=== PATIENT | male | born 1965 | race Caucasian/White ===

== ENCOUNTER 2016-12-21 15:03 | Emergency (ER) | payer OTHER ==
[~2016-12-21] VITALS: Ht 172.7 cm; Wt 102.5 kg
[~2016-12-21 15:03] MED LIST: ATAC8TAB; PERC10TA27 PO; PROM25SU8 PO; ROSU5 PO
[2016-12-21 15:24] VITALS: BP 88/44; PULSE 84; RESP 17; TEMP 97.5; O2SAT 99
[2016-12-21] MEDS ORDERED: ATAC8TAB PO (15:49)
[2016-12-21] MEDS ORDERED: ROSU5 PO (15:49)
[2016-12-21] MEDS ORDERED: SODIUM CHLOR 0.9% 1000 ML INJ 1,000 ML IV ONE ×2 (15:59→16:15)
[2016-12-21] MEDS ORDERED: SODIUM CHLORIDE 0.9% FLUSH 10 ML FLUSH IVF PRN (16:00)
[2016-12-21 16:08] VITALS: RESP 16; O2SAT 100
[2016-12-21 16:09] VITALS: BP 134/59; PULSE 95; RESP 16; O2SAT 100
[2016-12-21 16:26] LABS: AUTOMATED NEUTROPHIL # 2.6 TH/MM3 (1.8-7.7); BASOPHIL % 0.3 % (0.0-2.0); EOSINOPHIL % 0.8 % (0.0-4.0); HEMATOCRIT 37.9 % (39.0-51.0); HEMO FLAGS DIFF FINAL; LYMPH % 27.7 % (9.0-44.0); LYMPHOCYTE # 1.1 TH/MM3 (1.0-4.8); MEAN CELL VOLUME 85.2 FL (80.0-100.0); MEAN CORPUSCULAR HEMOGLOBIN 28.5 PG (27.0-34.0); MEAN CORPUSCULAR HGB CONC 33.4 % (32.0-36.0); MONO % 9.3 % (0.0-8.0); NEUT % 61.9 % (16.0-70.0); PLATELET COUNT 175 TH/MM3 (150-450); RED BLOOD COUNT 4.45 MIL/MM3 (4.50-5.90); RED CELL DISTRIBUTION WIDTH 12.7 % (11.6-17.2); WHITE BLOOD COUNT 4.1 TH/MM3 (4.0-11.0)
--- NOTE | 2016-12-21 16:29 | PD ---
HPI Chief Complaint: General Weakness Time Seen by Provider: 15:46 Travel History International Travel<30 days: No Contact w/Intl Traveler<30days: No Traveled to known affect area: No History of Present Illness HPI The patient's 51. He has had intermittent fever chills and URI symptoms for several days. He states he did not take any [id number] medication for the URI type illness. He flew 2 hours today from [place] and then went to [facility]. he did not drink alcohol however upon standing up he lost consciousness and fell to the ground. In the ER he states he's dehydrated and needs IV fluids. Similar episode has occurred in the past. He was hypotensive on scene. He had no chest pain nausea or vomiting prior to loss of consciousness or in the ER. [facility], LATER [facility] Past Medical History High Cholesterol: Yes Diabetes: No Diminished Hearing: No Genitourinary: Yes (KIDNEY STONES) Hypertension: Yes Kidney Stones: Yes Tetanus Vaccination: Unknown ?: Not Past Surgical History Abdominal Surgery: Yes (umbilical hernia repair) Appendectomy: Yes Social History Alcohol Use: No Tobacco Use: No Substance Use: No Allergies-Medications (Allergen,Severity, Reaction): Coded Allergies: Morphine (Verified Adverse Reaction, Intermediate, ITCHING, PAIN AND REDNESS , 12/21/16) Reported Meds & Prescriptions Reported Meds & Active Scripts Active Reported Crestor (Rosuvastatin Calcium) 5 Mg Tab 5 Mg PO DAILY Atacand (Candesartan Cilexetil) 8 Mg Tab 8 Mg PO DAILY Review of Systems Except as stated in HPI: all other systems reviewed are Neg Physical Exam Narrative GENERAL: 51-year-old male pleasant well-nourished well-developed SKIN: Warm and dry. HEAD: Atraumatic. Normocephalic. EYES: Pupils equal and round. No scleral icterus. No injection or drainage. ENT: No nasal bleeding or discharge. Mucous membranes pink and moist. NECK: Trachea midline. No JVD. CARDIOVASCULAR: Regular rate and rhythm. RESPIRATORY: No accessory muscle use. Clear to auscultation. Breath sounds equal bilaterally. GASTROINTESTINAL: Abdomen soft, non-tender, nondistended. Hepatic and splenic margins not palpable. MUSCULOSKELETAL: Extremities without clubbing, cyanosis, or edema. No obvious deformities. NEUROLOGICAL: Awake and alert. No obvious cranial nerve deficits. Motor grossly within normal limits. Five out of 5 muscle strength in the arms and legs. Normal speech. PSYCHIATRIC: Appropriate mood and affect; insight and judgment normal. Data Data Last Documented VS Vital Signs Date Time Temp Pulse Resp B/P Pulse Ox O2 Delivery O2 Flow Rate FiO2 12/21/16 16:53 99 16 162/85 99 Room Air 12/21/16 15:24 97.5 VS reviewed Orders Basic Metabolic Panel (Bmp) (12/21/16 15:59) Complete Blood Count With Diff (12/21/16 15:59) Magnesium (Mg) (12/21/16 15:59) Ckmb (Isoenzyme) Profile (12/21/16 15:59) Troponin I (12/21/16 15:59) Ecg Monitoring (12/21/16 15:59) Iv Access Insert/Monitor (12/21/16 15:59) Oximetry (12/21/16 15:59) Sodium Chloride 0.9% Flush (Ns Flush) (12/21/16 16:00) Sodium Chlor 0.9% 1000 Ml Inj (Ns 1000 M (12/21/16 15:59) Electrocardiogram (12/21/16 ) Sodium Chlor 0.9% 1000 Ml Inj (Ns 1000 M (12/21/16 16:15) CKMB (12/21/16 16:10) CKMB% (12/21/16 16:10) Labs Laboratory Tests Test 12/21/16 16:10 White Blood Count 4.1 TH/MM3 Red Blood Count 4.45 MIL/MM3 Hemoglobin 12.7 GM/DL Hematocrit 37.9 % Mean Corpuscular Volume 85.2 FL Mean Corpuscular Hemoglobin 28.5 PG Mean Corpuscular Hemoglobin 33.4 % Concent Red Cell Distribution Width 12.7 % Platelet Count 175 TH/MM3 Mean Platelet Volume 7.4 FL Neutrophils (%) (Auto) 61.9 % Lymphocytes (%) (Auto) 27.7 % Monocytes (%) (Auto) 9.3 % Eosinophils (%) (Auto) 0.8 % Basophils (%) (Auto) 0.3 % Neutrophils # (Auto) 2.6 TH/MM3 Lymphocytes # (Auto) 1.1 TH/MM3 Monocytes # (Auto) 0.4 TH/MM3 Eosinophils # (Auto) 0.0 TH/MM3 Basophils # (Auto) 0.0 TH/MM3 CBC Comment DIFF FINAL Differential Comment Sodium Level 138 MEQ/L Potassium Level 3.6 MEQ/L Chloride Level 100 MEQ/L Carbon Dioxide Level 28.2 MEQ/L Anion Gap 10 MEQ/L Blood Urea Nitrogen 15 MG/DL Creatinine 1.40 MG/DL Estimat Glomerular Filtration 53 ML/MIN Rate Random Glucose 179 MG/DL Calcium Level 8.8 MG/DL Magnesium Level 1.9 MG/DL Total Creatine Kinase 123 U/L Creatine Kinase MB 0.8 NG/ML Troponin I LESS THAN 0.02 NG/ML MDM Medical Decision Making Medical Screen Exam Complete: Yes Emergency Medical Condition: Yes Medical Record Reviewed: Yes Differential Diagnosis Arrhythmia, dehydration, vasovagal episode, PE, anemia, electrolyte imbalance Narrative Course CBC & BMP Diagram 12/21/16 16:10 Troponin less than 0.02 EKG reveals a sinus rhythm with T-wave inversions in the lateral precordial leads as well as inferior leads Renal function is slightly worse than several years ago. We had a fairly extensive discussion about the concern for the patient's presentation. EKG could reflect an ischemic injury pattern. 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 We spoke in detail about some fairly graphic potential outcomes should he be suffering from occlusive coronary disease including cardiopulmonary arrest intubation disability. Patient has assured me that he will follow-up with his primary care provider as soon as possible ideally tomorrow to arrange for an outpatient stress test. It would be preferable for the patient to stay however whether he signs out AGAINST MEDICAL ADVICE or leaves with the diagnosis in this case is considered trivial as the patient comprehends and understands what was discussed regardless. He was seen for essentially the exact same complaint just over 10 as prior and even arrived to the ER hypotensive as he did today. He understands he is most welcome to return any time with even the most mild symptom and has been encouraged to do so. He understands that the conversation would be included in the medical record as well. Diagnosis Primary Impression: Syncope and collapse Additional Impression: ST segment changes on electrocardiogram Referrals: Arvind Bowman MD 1 day Clinical Faculty 2 days Additional Instructions: You have a choice when it comes to health care, and we are glad that you chose [facility]. Hopefully, we have met your expectations on today's visit. You are welcome to return to [facility] at any time, as we are committed to meeting the health care needs of our community. Med/Other Pt SpecificInfo: No Change to Meds Disposition: 01 DISCHARGE HOME Condition: Brett Lynne MD Dec 21, 2016 16:29
[2016-12-21 16:35] LABS: CHLORIDE 100 MEQ/L (98-107); POTASSIUM 3.6 MEQ/L (3.5-5.1); SODIUM (NA) 138 MEQ/L (136-145)
[2016-12-21 16:38] LABS: ANION GAP 10 MEQ/L (5-15); BICARBONATE 28.2 MEQ/L (21.0-32.0); BLOOD UREA NITROGEN 15 MG/DL (7-18); MAGNESIUM 1.9 MG/DL (1.5-2.5)
[2016-12-21 16:41] LABS: GLOMERULAR FILTRATION RATE 53 ML/MIN (>89)
[2016-12-21 16:44] LABS: CREATINE KINASE 123 U/L (39-308)
[2016-12-21 16:53] VITALS: BP 162/85; PULSE 99; RESP 16; O2SAT 99
[2016-12-21 16:57] LABS: CKMB 0.8 NG/ML (0.5-3.6)
--- NOTE | 2016-12-22 23:04 | EKG ---
Date Performed: 12/21/2016 Time Performed: 16:08:18 PTAGE: 51 years EKG: Sinus rhythm Inferior/lateral T wave changes may be due to myocardial ischemia Abnormal ECG PREVIOUS TRACING : 03/10/2006 21.05 Compared to prior tracing no significant change DOCTOR: Vikram Bellamy Interpretating Date/Time 12/22/2016 23:02:23
== END 2016-12-21 17:43 | disposition home or self-care (01) ==
LOC: PHED 15:03
DX: R55 Syncope and collapse (principal); R94.31 Abnormal electrocardiogram [ECG] [EKG]; I95.9 Hypotension, unspecified; Z53.21 Procedure and treatment not carried out due to patient leaving prior to being seen by health care provider
CPT/HCPCS: 80048; 82550; 82552; 83735; 84484; 85025; 93005; 96360; 99284; J7030

== ENCOUNTER 2017-11-01 14:56 | Emergency (ER) | payer OTHER ==
[~2017-11-01] VITALS: Ht 172.7 cm; Wt 103.0 kg
[~2017-11-01 14:56] MED LIST changes: -ATAC8TAB; +ATAC8TAB PO; -PERC10TA27 PO; -PROM25SU8 PO
[2017-11-01 14:58] VITALS: BP 159/79; PULSE 106; RESP 18; TEMP 100.2; O2SAT 99
[2017-11-01] MEDS ORDERED: SODIUM CHLOR 0.9% 1000 ML INJ 1,000 ML IV SCH (15:21)
[2017-11-01 15:26] VITALS: O2SAT 98
[2017-11-01] MEDS ORDERED: SODIUM CHLORIDE 0.9% FLUSH 10 ML FLUSH IV FLUSH PRN (15:30)
[2017-11-01] MEDS ORDERED: PHENAZOPYRIDINE HCL 200 MG TAB PO ONE (15:30)
[2017-11-01] MEDS ORDERED: ACETAMINOPHEN 325 MG TAB PO ONE (15:30)
--- NOTE | 2017-11-01 15:47 | PD ---
HPI Chief Complaint: Complaint Time Seen by Provider: 15:08 Travel History International Travel<30 days: No Contact w/Intl Traveler<30days: No Traveled to known affect area: No History of Present Illness HPI 52-year-old male here for evaluation of dysuria and seasonal allergy-like symptoms. Patient states that since yesterday he has had frequent urination, and when he is finished urinating he feels like he needs to urinate more, however cannot. He endorses feeling subjective fevers and chills as well as generalized malaise. He has some nasal congestion and believes he may have seasonal allergies. No abdominal pain. 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 [facility] Past Medical History High Cholesterol: Yes Diabetes: No Diminished Hearing: No Genitourinary: Yes (KIDNEY STONES) Hypertension: Yes Kidney Stones: Yes Tetanus Vaccination: > 5 Years Influenza Vaccination: No Past Surgical History Abdominal Surgery: Yes (umbilical hernia repair) Appendectomy: Yes Social History Alcohol Use: No Tobacco Use: No Substance Use: No Allergies-Medications (Allergen,Severity, Reaction): Coded Allergies: morphine (Unverified Adverse Reaction, Intermediate, ITCHING, PAIN AND REDNESS , 11/01/17) Reported Meds & Prescriptions Reported Meds & Active Scripts Active Reported Crestor (Rosuvastatin Calcium) 5 Mg Tab 5 Mg PO DAILY Atacand (Candesartan Cilexetil) 8 Mg Tab 8 Mg PO DAILY Review of Systems Except as stated in HPI: all other systems reviewed are Neg Physical Exam Narrative GENERAL: Well-developed, well-nourished, comfortable, no apparent distress. SKIN: Focused skin assessment warm/dry. HEAD: Atraumatic. Normocephalic. EYES: Pupils equal and round. No scleral icterus. No injection or drainage. ENT: No nasal bleeding or discharge. Mucous membranes pink and moist. Normal pharynx. NECK: Trachea midline. No JVD. No nuchal rigidity. CARDIOVASCULAR: Regular rate and rhythm. No murmur appreciated. RESPIRATORY: No accessory muscle use. Clear to auscultation. Breath sounds equal bilaterally. GASTROINTESTINAL: Abdomen soft, non-tender, nondistended. MUSCULOSKELETAL: No obvious deformities. No clubbing. No cyanosis. No edema. No midline vertebral step-off or tenderness. No CVA tenderness. NEUROLOGICAL: Awake and alert. No obvious cranial nerve deficits. Motor grossly within normal limits. Normal speech. PSYCHIATRIC: Appropriate mood and affect; insight and judgment normal. Data Data Last Documented VS Vital Signs Date Time Temp Pulse Resp B/P (MAP) Pulse Ox O2 Delivery O2 Flow Rate FiO2 11/01/17 17:36 100.9 11/01/17 17:02 100 16 96 Room Air Orders Orders Complete Blood Count With Diff (11/01/17 15:) Comprehensive Metabolic Panel (11/01/17 15:) Prothrombin Time / Inr (Pt) (11/01/17:) Act Partial Throm Time (Ptt) (11/01/17:) Urinalysis - C+S If Indicated (11/01/17:) Ct Abd/Pel W Iv Contrast(Rout) (11/01/17 15:21) Iv Access Insert/Monitor (11/01/17 15:21) Ecg Monitoring (11/01/17:) Oximetry (11/01/17 15:) Sodium Chlor 0.9% 1000 Ml Inj (Ns 1000 M (11/01/17 15:21) Sodium Chloride 0.9% Flush (Ns Flush) (11/01/17 15:30) Phenazopyridine (Pyridium) (11/01/17 15:30) Acetaminophen (Tylenol) (11/01/17 15:30) Influenzae A/B Antigen (11/01/17 15:21) Creatine Kinase (Cpk) (11/01/17 16:16) Iohexol 350 Inj (Omnipaque 350 Inj) (11/01/17 16:42) Ketorolac Inj (Toradol Inj) (11/01/17 17:30) Ciprofloxacin (Cipro) (11/01/17 17:45) Labs Laboratory Tests Test 11/01/17 15:30 White Blood Count 11.1 TH/MM3 Red Blood Count 4.51 MIL/MM3 Hemoglobin 12.8 GM/DL Hematocrit 38.5 % Mean Corpuscular Volume 85.4 FL Mean Corpuscular Hemoglobin 28.5 PG Mean Corpuscular Hemoglobin Concent 33.3 % Red Cell Distribution Width 12.3 % Platelet Count 214 TH/MM3 Mean Platelet Volume 7.5 FL Neutrophils (%) (Auto) 76.8 % Lymphocytes (%) (Auto) 12.5 % Monocytes (%) (Auto) 6.6 % Eosinophils (%) (Auto) 1.2 % Basophils (%) (Auto) 2.9 % Neutrophils # (Auto) 8.6 TH/MM3 Lymphocytes # (Auto) 1.4 TH/MM3 Monocytes # (Auto) 0.7 TH/MM3 Eosinophils # (Auto) 0.1 TH/MM3 Basophils # (Auto) 0.3 TH/MM3 CBC Comment AUTO DIFF Differential Comment AUTO DIFF CONFIRMED Prothrombin Time 11.5 SEC Prothromb Time International Ratio 1.1 RATIO Activated Partial Thromboplast Time 27.4 SEC Urine Collection Type CLEAN CATCH Urine Color STRAW Urine Turbidity CLEAR Urine pH 7.0 Urine Specific [place] LESS/EQUAL 1.005 Urine Protein NEG mg/dL Urine Glucose (UA) NEG mg/dL Urine Ketones NEG mg/dL Urine Occult Blood TRACE Urine Nitrite NEG Urine Bilirubin NEG Urine Urobilinogen 0.2 MG/DL Urine Leukocyte Esterase SMALL Urine RBC 4-9 /hpf Urine WBC 3-5 /hpf Urine Squamous Epithelial Cells 0-5 /hpf Urine Amorphous Sediment FEW Microscopic Urinalysis Comment CULT NOT INDICATED Urine Collection Time 1530 Blood Urea Nitrogen 10 MG/DL Creatinine 1.00 MG/DL Random Glucose 102 MG/DL Total Protein 7.7 GM/DL Albumin 4.2 GM/DL Calcium Level 8.7 MG/DL Alkaline Phosphatase 56 U/L Aspartate Amino Transf (AST/SGOT) 17 U/L Alanine Aminotransferase (ALT/SGPT) 45 U/L Total Bilirubin 0.6 MG/DL Sodium Level 140 MEQ/L Potassium Level 3.5 MEQ/L Chloride Level 103 MEQ/L Carbon Dioxide Level 29.6 MEQ/L Anion Gap 7 MEQ/L Estimat Glomerular Filtration Rate 78 ML/MIN Total Creatine Kinase 247 U/L [facility] Medical Decision Making Medical Screen Exam Complete: Yes Emergency Medical Condition: Yes Differential Diagnosis UTI, cystitis, prostatitis, pyelonephritis, nephrolithiasis, colitis, URI, influenza Narrative Course Vital signs reviewed. The patient has fever and slight tachycardia. CBC: WBC 11.1, hemoglobin 12.8, hematocrit 38.5, platelets 214, neutrophils 76.8 %. CMP is unremarkable. Total CK is 247. UA: Small leukocyte esterase, 4-9 RBCs, 3-[address]BC[address] is negative. CT abdomen pelvis: CONCLUSION: 1. Mild prostatic enlargement. No calculi or obstructive uropathy. Small hepatic cyst. Patient has mild prostate tenderness on exam. This along with symptoms of dysuria, the patient likely has prostatitis. Plan is to start him on Cipro. He has a urologist Dr. Barros whom he will follow-up with this week. He was advised to stay hydrated with plenty of fluids and to keep fever under control with Tylenol and ibuprofen. He was informed on when to return to the emergency department. He verbalizes understanding and agreement with plan. Diagnosis Primary Impression: Prostatitis Qualified Codes: N41.9 - Inflammatory disease of prostate, unspecified Referrals: Arsen Cortes MD 3 days Urologist Primary Care Physician 3 days Additional Instructions: Follow-up with your urologist this week. Return to the emergency department for worsening symptoms or any other concerns. Scripts Phenazopyridine (Pyridium) 100 Mg Tab 100 MG PO Q8H Y for DYSURIA for 5 Days, #15 TAB 0 Refills Prov: Zhao Romero MD 11/01/17 Ciprofloxacin (Cipro) 500 Mg Tab 500 MG PO BID for Infection for 14 Days, #28 TAB 0 Refills Prov: Zhao Romero MD 11/01/17 Disposition: 01 DISCHARGE HOME Condition: Stable Zhao Romero MD Nov 01, 2017 15:47
[2017-11-01 15:58] LABS: AUTOMATED NEUTROPHIL # 8.6 TH/MM3 (1.8-7.7); BASOPHIL # 0.3 TH/MM3 (0-0.2); BASOPHIL % 2.9 % (0.0-2.0); EOSINOPHIL # 0.1 TH/MM3 (0-0.4); EOSINOPHIL % 1.2 % (0.0-4.0); HEMATOCRIT 38.5 % (39.0-51.0); HEMOGLOBIN 12.8 GM/DL (13.0-17.0); LYMPH % 12.5 % (9.0-44.0); LYMPHOCYTE # 1.4 TH/MM3 (1.0-4.8); MEAN CELL VOLUME 85.4 FL (80.0-100.0); MEAN CORPUSCULAR HEMOGLOBIN 28.5 PG (27.0-34.0); MEAN CORPUSCULAR HGB CONC 33.3 % (32.0-36.0); MEAN PLATELET VOLUME 7.5 FL (7.0-11.0); MONO % 6.6 % (0.0-8.0); MONOCYTE # 0.7 TH/MM3 (0-0.9); NEUT % 76.8 % (16.0-70.0); PLATELET COUNT 214 TH/MM3 (150-450); RED BLOOD COUNT 4.51 MIL/MM3 (4.50-5.90); RED CELL DISTRIBUTION WIDTH 12.3 % (11.6-17.2); WHITE BLOOD COUNT 11.1 TH/MM3 (4.0-11.0)
[2017-11-01 16:03] LABS: BILIRUBIN, URINE NEG (NEG); BLOOD, URINE TRACE (NEG); GLUCOSE,URINE NEG (NEG); KETONE, URINE NEG (NEG); NITRITE,URINE NEG (NEG); URINE LEUKOCYTE ESTERASE SMALL (NEG)
[2017-11-01 16:04] LABS: URINE COLOR STRAW (YELLW/STRAW)
[2017-11-01 16:10] LABS: AMORPHOUS SEDIMENT, URINE FEW; SQUAMOUS EPITHELIAL CELL URINE 0-5 /hpf (0-5)
[2017-11-01 16:12] LABS: CHLORIDE 103 MEQ/L (98-107); SODIUM (NA) 140 MEQ/L (136-145)
[2017-11-01 16:16] LABS: ALBUMIN 4.2 GM/DL (3.4-5.0); BICARBONATE 29.6 MEQ/L (21.0-32.0); BLOOD UREA NITROGEN 10 MG/DL (7-18); CALCIUM 8.7 MG/DL (8.5-10.1); GLUCOSE,RANDOM 102 MG/DL (74-106)
[2017-11-01 16:17] LABS: INTERNATIONAL NORMALIZED RATIO 1.1 RATIO; PROTHROMBIN TIME - PATIENT 11.5 SEC (9.8-11.6)
[2017-11-01 16:19] LABS: ALT (GPT) 45 U/L (12-78); AST (GOT) 17 U/L (15-37); GLOMERULAR FILTRATION RATE 78 ML/MIN (>89)
[2017-11-01 16:21] LABS: TOTAL BILIRUBIN ADULT 0.6 MG/DL (0.2-1.0); TOTAL PROTEIN 7.7 GM/DL (6.4-8.2)
[2017-11-01 16:22] LABS: ALKALINE PHOSPHATASE 56 U/L (45-117)
[2017-11-01] MEDS ORDERED: IOHEXOL 350 MG/ML 10 ML VIAL (for RAD DIAG) IVCONTRAST ONE (16:42)
[2017-11-01 16:54] VITALS: BP 140/86; PULSE 100; RESP 16; TEMP 101.3; O2SAT 96
[2017-11-01 17:02] VITALS: BP 140/86; PULSE 100; RESP 16; TEMP 101.3; O2SAT 96
--- NOTE | 2017-11-01 17:02 | RADRPT ---
EXAM DATE/TIME: 11/01/2017 16:36 [place] COMPARISON: No previous studies available for comparison. INDICATIONS : Difficulty urinating. IV CONTRAST: 95 cc Omnipaque 350 (iohexol) IV ORAL CONTRAST: No oral contrast ingested. RADIATION DOSE: 20.53 CTDIvol (mGy) MEDICAL HISTORY : Hypertension. Renal calculi. SURGICAL HISTORY : Appendectomy. Umbilical hernia repair. ENCOUNTER: Initial ACUITY: 2 days PAIN SCALE: 4/10 LOCATION: pelvis TECHNIQUE: Volumetric scanning of the abdomen and pelvis was performed. Using automated exposure control and ad justment of the mA and/or kV according to patient size, radiation dose was kept as low as reasonably achievable to obtain optimal diagnostic quality images. DICOM format image data is available electro nically for review and comparison. FINDINGS: Lung bases clear. No acute findings in the liver, spleen, adrenals, kidneys or pancreas. Small cyst i n the caudate lobe. No free fluid. No bowel obstruction. There is colonic diverticulosis without evidence for diverticuli tis. Prostate mildly enlarged. No bladder calculi. CONCLUSION: 1. Mild prostatic enlargement. No calculi or obstructive uropathy. Small hepatic cyst. Erick Mccann MD on November 01, 2017 at 16:58 Board Certified Radiologist. This report was verified electronically.
[2017-11-01] MEDS ORDERED: KETOROLAC TROMETHAMINE 30 MG/ML (IVP) VIAL IV PUSH ONE (17:30)
[2017-11-01 17:36] VITALS: TEMP 100.9
[2017-11-01] MEDS ORDERED: PHEN0.4T PO (17:40)
[2017-11-01] MEDS ORDERED: CIPR-9 PO (17:40)
[2017-11-01] MEDS ORDERED: CIPROFLOXACIN 500 MG TAB PO ONE (17:45)
== END 2017-11-01 17:52 | disposition home or self-care (01) ==
LOC: PHED 14:56
DX: N41.9 Inflammatory disease of prostate, unspecified (principal); R35.0 Frequency of micturition; R53.81 Other malaise; R50.9 Fever, unspecified; R09.81 Nasal congestion; I10 Essential (primary) hypertension
CPT/HCPCS: 74177; 80053; 81001; 82550; 85025; 85610; 85730; 87086; 87804; 96361; 96374; 99284; J1885; J7030; Q9967